=== PATIENT | male | born 1955 | race Caucasian/White ===

== ENCOUNTER 2018-01-23 18:26 | Emergency (ER) | payer BC ==
[2018-01-23] MEDS ORDERED: Lidocaine Viscous Sol 2% 15 ml UD Cup ONE (20:21)
[2018-01-23] MEDS ORDERED: Mag-Al 1200 mg/1200 mg/30 ML UDCUP ONE (20:21)
--- NOTE | 2018-01-23 20:21 | RAD ---
PORTABLE CHEST: 01/23/2018 PROVIDED CLINICAL HISTORY: Headache and cough. FINDINGS: The cardiac and mediastinal silhouette are within normal limits. No focal consolidation, pleural flu id, or pneumothorax apparent. IMPRESSION: No evidence for an acute cardiopulmonary process. POS: [facility]
--- NOTE | 2018-01-23 20:49 | CT ---
CT BRAIN: 01/23/2018 PROVIDED CLINICAL HISTORY: Dizziness. COMPARISON: None. FINDINGS: The ventricular system appears normal in size and morphology. There is no evidence for intracranial hemorrhage or mass effect. The extracranial soft tissues and osseous structures demonstrate no acute abnormality. IMPRESSION: No evidence for intracranial hemorrhage or mass effect. POS: [facility]
== END 2018-01-23 21:38 | disposition home or self-care (01) ==
LOC: ERS 18:26
DX: R05 Cough (principal); Z86.73 Personal history of transient ischemic attack (TIA), and cerebral infarction without residual deficits; Z87.442 Personal history of urinary calculi
CPT/HCPCS: 70450; 71045; J7620

== ENCOUNTER 2018-09-01 17:29 | Day surgery (SDC) | payer BC ==
[2018-09-01] MEDS ORDERED: Ketorolac Tromethamine 30 MG/ML VIAL ONE (17:44)
[2018-09-01 17:57] LABS: #Basophils 0.1 thou/uL (0.0-0.2); #Eosinphils 0.1 thou/uL (0.0-0.7); #Lymphocytes 3.7 thou/uL (1.20-3.40); #Monocytes 0.8 thou/uL (0.11-0.59); #Neutrophils 10.2 thou/uL (1.40-6.50); %Basophils 0.6 % (0.0-1.0); %Lymphocytes 24.9 % (21.0-51.0); %Monocytes 5.4 % (0.0-10.0); %Neutrophils 68.1 % (42.0-75.0); Hemoglobin 14.8 g/dL (14.0-18.0); Mean Corpuscular HGB CONC 33.9 g/dL (32.0-36.0); Mean Corpuscular Hemoglobin 30.7 pg (27.0-31.0); Mean Corpuscular Volume 90.6 fL (78.0-98.0); Mean Platelet Volume 8.5 fL (7.4-10.4); Platelet Count 247 thou/uL (130-400); RBC Distribution Width 14.7 % (11.5-14.5); Red Blood Cell (RBC) Count 4.83 mill/uL (4.70-6.10)
[2018-09-01 18:03] LABS: Bilirubin Negative (Negative); Blood, Urine Negative (Negative); Clarity TURBID (Clear); Glucose, Urine (Dipstick) Negative (Negative); Leukocyte Negative (Negative); Nitrite Negative (Negative); Protein, Urine (Dipstick) 30 mg/dL (Neg-Trace); Specific Gravity, Urine 1.021 (1.002-1.036); Urobilinogen 0.2 mg/dL (0.2-1.0); pH, Urine 8.5 (5.0-9.0)
[2018-09-01 18:06] LABS: Bacteria/HPF None Seen HPF (None Seen); Hyaline Casts/LPF 0-3 HYALINE CAST LPF (0-3 Hyaline); Pathc Cast-AUWi Flag 0.29 (0-2.49); WBC/HPF 0-3 HPF (0-3)
[2018-09-01 18:16] LABS: Crystals/HPF 3+ AMORPH PHOS HPF (Negative); RBC/HPF 0-3 HPF (0-3)
[2018-09-01] MEDS ORDERED: Fentanyl 100 MCG/2 ML VIAL ONE ×2 (18:25→18:51)
[2018-09-01] MEDS ORDERED: Bupivacaine/Epinephrine 0.25% 30 ML VIAL ONE (18:41)
[2018-09-01] MEDS ORDERED: MEROPENEM 1 GM/50 ML 1 GM in Premix Bag 1 BAG IVPB SCH (18:45)
[2018-09-01] MEDS ORDERED: Midazolam HCl 2 mg/2 ml Vial ONE (18:51)
--- NOTE | 2018-09-01 19:43 | HP ---
CHIEF COMPLAINT: Abdominal pain. HISTORY: Mr. Quick is a 63-year-old man, who presented to the emergency room with a history of right lower abdominal pain since this afternoon. He states that it happened shortly after going to the bathroom and was started on the lower abdominal area, then moved to the right, and radiated down into his groin and then back up into his abdomen. He denied any fevers, but was having some shaking chills. No nausea or vomiting. He did not notice whether movement made it worse since he was not really moving around after the pain started. PAST MEDICAL HISTORY: Obstructive sleep apnea, frontal lobe dementia with a mini-stroke causing some mild aphasia primarily expressive, multiple kidney stones, skin cancer, hypertension, and diverticulitis. PAST SURGICAL HISTORY: Skin cancer excisions and skin grafting as well as laparoscopic colectomy for diverticulitis. FAMILY HISTORY: Not fully known since he was adopted, but his mother had diabetes and lung cancer. ALLERGY: He has an allergy to penicillin. MEDICATIONS: Does not take any medications on a regular basis. SOCIAL HISTORY: Negative for tobacco, alcohol, or drug use. REVIEW OF SYSTEMS: 10 system review of systems is negative except per HPI. PHYSICAL EXAMINATION: GENERAL: Reveals a healthy-appearing man, in no acute distress. He is not flushed or toxic in appearance. He is not jaundiced or icteric. HEENT: Unremarkable. NECK: Supple without lymphadenopathy or thyroid nodules. HEART: Regular in its rate and rhythm without murmurs, rubs, or gallops. LUNGS: Clear to auscultation bilaterally with good air entry. ABDOMEN: Soft and nondistended. He has a small umbilical hernia and several laparoscopic incisions, which are well healed. He is tender to palpation in the right lower quadrant and suprapubic area. EXTREMITIES: Warm and well perfused without edema. NEUROLOGIC: No focal motor deficits. He does occasionally have some word-finding difficulties. This is subtle. PSYCHIATRIC: Alert, oriented, and appropriate. LABORATORY DATA: White count is elevated at 15,000. Urine was positive for protein and some squamous cells. Comprehensive metabolic panel is still pending. IMAGING STUDIES: CT images are reviewed and I agree with the written report. ASSESSMENT: Acute appendicitis. I have recommended laparoscopic appendectomy. The inherent risks of surgery were discussed with the patient and his . These risks include, but are not limited to bleeding, infection, risks of anesthesia, damage to nearby structures including bowel, blood vessel, bladder, need for open operation, and need for other surgeries. He understands and accepts these risks and wishes to proceed. Since we will be placing a port at the umbilical location, we will plan to fix a small umbilical hernia with suture alone at the end of the case. All of his questions were answered. Teo has been ordered. He has been proceeded for the operating room. Job ID: [id number]
[2018-09-01 19:47] LABS: Albumin 3.7 g/dL (3.4-4.8)
[2018-09-01 19:49] LABS: Calcium 8.8 mg/dL (7.8-10.44); Chloride 108 mmol/L (98-107); Potassium 3.9 mmol/L (3.5-5.1); Sodium 140 mmol/L (136-145)
[2018-09-01 19:50] LABS: Globulin 2.5 g/dL (2.4-3.5); Glucose 113 mg/dL (80-115); Protein, Total 6.2 g/dL (5.8-8.1)
[2018-09-01 19:51] LABS: Anion Gap 11 mmol/L (10-20); Carbon Dioxide 25 mmol/L (23-31)
[2018-09-01 19:52] LABS: Alkaline Phosphatase 48 U/L (40-150); Bilirubin, Total 0.4 mg/dL (0.2-1.2)
[2018-09-01 19:53] LABS: Calc. Creatinine Clearance 0 mL/min (70-130); Estimated GFR-MDRD 55
[2018-09-01 19:54] LABS: BUN (Urea Nitrogen) 17 mg/dL (8.4-25.7)
[2018-09-01 19:55] LABS: AST (SGOT) 19 U/L (5-34)
[2018-09-01 19:56] LABS: ALT (SGPT) 18 U/L (8-55)
[2018-09-01] MEDS ORDERED: Ketorolac Tromethamine 10 MG TAB PO PRN (20:53)
[2018-09-01] MEDS ORDERED: Acetaminophen 325 MG TAB PO PRN ×2 (20:54)
[2018-09-01] MEDS ORDERED: HYDROcodone/Acetaminophen 5/325 mg Tablet PO PRN ×2 (20:55→20:56)
[2018-09-01] MEDS ORDERED: Dexamethasone 20 MG/5 ML VIAL ONE (20:56)
[2018-09-01] MEDS ORDERED: Glycopyrrolate 0.2 MG/ML 5 ML SYRINGE ONE (20:56)
[2018-09-01] MEDS ORDERED: Ondansetron PF 4 MG/2 ML Vial IVP PRN (20:56)
[2018-09-01] MEDS ORDERED: PROPOFOL 200 MG/20 ML VIAL ONE (20:56)
[2018-09-01] MEDS ORDERED: Lidocaine 1% PF 5 ML VIAL ONE (20:56)
[2018-09-01] MEDS ORDERED: Ondansetron PF 4 MG/2 ML Vial ONE (20:56)
[2018-09-01] MEDS ORDERED: Ondansetron ODT 4 MG TAB SL PRN (20:57)
[2018-09-01] MEDS ORDERED: Morphine 4 MG/ML VIAL IV PRN (20:59)
--- NOTE | 2018-09-01 21:56 | CT ---
CT ABDOMEN WITHOUT CONTRAST CT PELVIS WITHOUT CONTRAST 09/01/18 HISTORY: One hour ago, right sharp groin and right lower quadrant pain. Past medical history of renal calculi. FINDINGS: ABDOMEN CT: Lung bases are clear. Normal heart size. No significant pericardial fluid. The descending thoracic ao rta and abdominal aorta have a normal caliber. No periaortic fat stranding. Unremarkable gallbladder. Limited evaluation of the solid organs due to the lack of IV contrast. Multiple well circumscribed hy podensities in the liver compatible with cysts. Largest cyst measures 3.6 x 3.7 cm. No mesenteric mass, lymphadenopathy, free air or free fluid. Limited evaluation of the alimentary canal due to lack of oral contrast administration. Gastric mucos a, duodenum and multiple normal caliber small bowel loops are identified. Ileocecal junction is joan l. There is scattered fecal material in a nondistended, nondilated colon. There is a dilated tubular structure which has multiple hyperdensities within it compatible with multifocal appendicoliths. The mid to distal aspect does demonstrate some mild stranding and fluid. This tubular structure is dilate d and measures 0.8 cm at its base. There is an appendicolith measuring approximately 0.6 cm. Small ap pendicoliths are also noted. There is an exophytic cyst emanating from the left renal cortex measuring 3.4 x 4.5 cm. Bilaterally, no hydronephrosis, nephrolithiasis, or perinephric fat stranding. Bilateral ureters have normal calib er. No hydroureter, periureteral fat stranding or ureterolithiasis. Note, there are multiple calcific ations adjacent to the course of the distal left ureter. Nevertheless, no associated obstructive urop athy. CT PELVIS: There is anastomosis at the level of the rectosigmoid junction. No pelvic mass, lymphadenopathy, karen e air or free fluid. No calcifications in urinary bladder. No lytic or blastic lesions in the osseous structures. IMPRESSION: 1. Bilaterally, no evidence of obstructive uropathy. 2. Multiple hyperdensities within the appendix, compatible with appendicolith. The proximal aspe ct of the appendix is dilated measuring 0.8 cm. The distal aspect does demonstrate a small amount o f adjacent mesenteric fluid. The possibility of early appendicitis is raised. Results of the study di scussed with Dr. Cruz, 12/29/18 at 6:23 p.m. Code CR POS: [facility]
[2018-09-01 22:36] VITALS: BMI 28.8
[2018-09-02 08:17] VITALS: BP 102/65; TEMP 98.5
--- NOTE | 2018-09-03 12:08 | OP ---
DATE OF PROCEDURE: 09/01/2018 PROCEDURE: Laparoscopic appendectomy and repair of umbilical hernia on 09/01/2018. PREOPERATIVE DIAGNOSES: Acute appendicitis and small umbilical hernia. POSTOPERATIVE DIAGNOSES: Acute appendicitis and small umbilical hernia. HISTORY OF PRESENT ILLNESS: Mr. Quick is a 63-year-old man who presented to the emergency room with acute onset of right-sided abdominal pain. He has a history of kidney stones and thought he might be having an another kidney stone, but CT revealed acute appendicitis. Recommendation was made to proceed to the operating room for laparoscopic appendectomy. He was also incidentally noted to have a small reducible umbilical hernia and repair of this under the same anesthesia was recommended due to the small size of the hernia and need for appendectomy, suture repair only was recommended. DESCRIPTION OF PROCEDURE: After informed consent was obtained and appropriate preoperative antibiotics continued, the patient was taken to the operating room. He was placed in supine position and general endotracheal anesthesia was administered. The bladder was decompressed with John catheter and he was prepped and draped in standard sterile fashion. Local anesthesia was infused to the skin and subcutaneous tissues at the level of the umbilicus. A transverse skin incision was made. Dissection was carried down to the umbilical hernia, which was found to contain preperitoneal fat only. The Veress needle was placed through the small less than 1 cm fascial defect and carbon dioxide gas easily insufflated to an intraabdominal pressure of 15 which the patient tolerated well. The opening pressure was less than 5. The Veress needle was then withdrawn and a ClearView port advanced through the umbilical defect under direct vision. The abdominal cavity was carefully examined. There was no evidence of Veress needle or trocar injury. The appendix appeared inflamed, but not perforated. Local anesthesia was infused to the skin and subcutaneous tissues at the suprapubic and left lower quadrant sites, and the trocars were advanced under direct laparoscopic vision. The mesoappendix was grasped and elevated and sequentially ligated and divided down to the base of the appendix, which was normal in appearance. Two endo-loops were placed around the base of the appendix at the confluence of the tenia and the appendix was divided between endo-loops placed into an EndoCatch bag, and drawn out through the suprapubic incision. The operative site was easily irrigated clear and hemostasis was verified. There was no evidence of perforation or periappendiceal abscess. The suprapubic trocar was removed and the fascial defect closed with a 0 Vicryl suture on a granny needle with excellent technical result. The left lower quadrant trocar was then removed and hemostasis verified. Carbon dioxide gas was allowed to desufflate through the umbilical trocar which was then removed. The fascia was reapproximated with 0 Vicryl suture on a UR6 needle under direct vision with excellent technical result. Additional, local anesthesia was infused for postoperative pain control and the skin incisions were closed with 4-0 Monocryl subcuticular sutures. Dermabond dressings were placed and the patient was taken to Recovery in good condition. ESTIMATED BLOOD LOSS: Minimal. COMPLICATIONS: There were no complications. SPECIMEN: Appendix. Job ID: [id number]
== END 2018-09-02 11:05 | disposition home or self-care (01) ==
LOC: ERS 17:29 → SDC/OP 18:44 → SJJU 20:36 → SDC/OP 09-02 11:05
PROVIDERS: ATTEND Surgery
PROC: 0WQF0ZZ Repair Abdominal Wall, Open Approach (ICD-10-PCS; principal; 2018-09-01)
PROC: 0DTJ4ZZ Resection of Appendix, Percutaneous Endoscopic Approach (ICD-10-PCS; principal; 2018-09-01)
DX: K35.80 Unspecified acute appendicitis (principal); K42.9 Umbilical hernia without obstruction or gangrene; G47.33 Obstructive sleep apnea (adult) (pediatric); I69.320 Aphasia following cerebral infarction; G31.09 Other frontotemporal neurocognitive disorder; F02.80 Dementia in other diseases classified elsewhere, unspecified severity, without behavioral disturbance, psychotic disturbance, mood disturbance, and anxiety; I10 Essential (primary) hypertension; Z88.0 Allergy status to penicillin; Z79.82 Long term (current) use of aspirin; Z79.899 Other long term (current) drug therapy
CPT/HCPCS: 36415; 74176; 80053; 81003; 81015; 85025; 87086; 88304; 96361; 96374; 96375; J1100; J1885; J2001; J2185; J2250; J2405; J2704; J3010

== ENCOUNTER 2018-09-09 10:12 | Emergency (ER) | payer BC ==
[2018-09-09 10:33] LABS: #Basophils 0.2 thou/uL (0.0-0.2); #Eosinphils 0.2 thou/uL (0.0-0.7); #Lymphocytes 2.5 thou/uL (1.20-3.40); #Monocytes 0.5 thou/uL (0.11-0.59); #Neutrophils 3.7 thou/uL (1.40-6.50); %Basophils 2.2 % (0.0-1.0); %Eosinophils 3.3 % (0.0-10.0); %Lymphocytes 35.1 % (21.0-51.0); %Monocytes 7.5 % (0.0-10.0); %Neutrophils 51.9 % (42.0-75.0); Hemoglobin 14.4 g/dL (14.0-18.0); Mean Corpuscular HGB CONC 33.9 g/dL (32.0-36.0); Mean Corpuscular Hemoglobin 31.2 pg (27.0-31.0); Platelet Count 222 thou/uL (130-400); RBC Distribution Width 11.8 % (11.5-14.5); Red Blood Cell (RBC) Count 4.63 mill/uL (4.70-6.10); White Blood Cell (WBC) Count 7.1 thou/uL (4.8-10.8)
[2018-09-09 10:39] LABS: PTT 27.8 SEC (22.9-36.1); Prothrombin Time 13.2 SEC (12.0-14.7)
[2018-09-09 10:55] LABS: ALT (SGPT) 23 U/L (8-55); AST (SGOT) 18 U/L (5-34); Albumin 4.2 g/dL (3.4-4.8); Alkaline Phosphatase 68 U/L (40-150); Anion Gap 11 mmol/L (10-20); BUN (Urea Nitrogen) 17 mg/dL (8.4-25.7); Bilirubin, Total 0.5 mg/dL (0.2-1.2); CK (CPK) 94 U/L (30-200); Calc. Creatinine Clearance 0 mL/min (70-130); Calcium 9.7 mg/dL (7.8-10.44); Carbon Dioxide 29 mmol/L (23-31); Chloride 103 mmol/L (98-107); Estimated GFR-MDRD 65; Globulin 3.4 g/dL (2.4-3.5); Glucose 97 mg/dL (80-115); Potassium 4.3 mmol/L (3.5-5.1); Protein, Total 7.6 g/dL (5.8-8.1); Sodium 139 mmol/L (136-145)
--- NOTE | 2018-09-09 11:54 | ULT ---
RIGHT LOWER EXTREMITY VENOUS DOPPLER: Date: 09/09/18 HISTORY: Right lower extremity pain, edema, and redness. COMPARISON: None. TECHNIQUE: Real-time Culver scale and color Doppler with spectral analysis of the right lower extremity venous sy stem was performed. The common femoral, femoral, proximal portions of greater saphenous and deep femo ral veins, as well as the popliteal and posterior tibial veins were interrogated. FINDINGS: There is thrombosis of the posterior tibial vein. Remainder of the veins have normal flow, augmentati on and compression. IMPRESSION: Thrombosis right posterior tibial vein. Dr. Marvin notified of findings at 1111 hours. CODE CR. POS: [facility]
== END 2018-09-09 11:45 | disposition home or self-care (01) ==
LOC: ERS 10:12
DX: I82.441 Acute embolism and thrombosis of right tibial vein (principal); D64.9 Anemia, unspecified; Z79.899 Other long term (current) drug therapy; Z86.73 Personal history of transient ischemic attack (TIA), and cerebral infarction without residual deficits
CPT/HCPCS: 36415; 80053; 82550; 85025; 85610; 85730; 93005; 94760

== ENCOUNTER 2018-09-28 05:27 | Observation (INO) | payer BC ==
[2018-09-28 06:30] LABS: #Basophils 0.1 thou/uL (0.0-0.2); #Eosinphils 0.2 thou/uL (0.0-0.7); #Lymphocytes 2.1 thou/uL (1.20-3.40); #Monocytes 0.3 thou/uL (0.11-0.59); #Neutrophils 2.1 thou/uL (1.40-6.50); %Basophils 1.2 % (0.0-1.0); %Lymphocytes 43.8 % (21.0-51.0); %Monocytes 6.5 % (0.0-10.0); %Neutrophils 44.4 % (42.0-75.0); Hemoglobin 13.6 g/dL (14.0-18.0); Mean Corpuscular HGB CONC 33.2 g/dL (32.0-36.0); Mean Corpuscular Hemoglobin 30.9 pg (27.0-31.0); Mean Corpuscular Volume 93.1 fL (78.0-98.0); Mean Platelet Volume 8.4 fL (7.4-10.4); Platelet Count 209 thou/uL (130-400); RBC Distribution Width 11.7 % (11.5-14.5); Red Blood Cell (RBC) Count 4.41 mill/uL (4.70-6.10); White Blood Cell (WBC) Count 4.7 thou/uL (4.8-10.8)
[2018-09-28 06:35] LABS: INR-International Normal Ratio 1.1; PTT 31.5 SEC (22.9-36.1); Prothrombin Time 14.5 SEC (12.0-14.7)
[2018-09-28 06:54] LABS: ALT (SGPT) 24 U/L (8-55); AST (SGOT) 22 U/L (5-34); Acetaminophen Less than 6.0 mcg/mL (10.0-30.0); Alcohol Less than 10 mg/dL (Less than 10); Alkaline Phosphatase 59 U/L (40-150); Anion Gap 14 mmol/L (10-20); BUN (Urea Nitrogen) 13 mg/dL (8.4-25.7); Bilirubin, Total 0.5 mg/dL (0.2-1.2); Calc. Creatinine Clearance 0 mL/min (70-130); Calcium 9.5 mg/dL (7.8-10.44); Carbon Dioxide 23 mmol/L (23-31); Chloride 107 mmol/L (98-107); Estimated GFR-MDRD 69; Glucose 107 mg/dL (80-115); Salicylate Less than 8.0 mg/dL (15.0-30.0); Sodium 140 mmol/L (136-145)
[2018-09-28 07:02] LABS: CK (CPK) 127 U/L (30-200); Lipase 21 U/L (8-78)
--- NOTE | 2018-09-28 08:38 | CT ---
PRELIMINARY REPORT/[facility]/EMERGENTY AFTER-HOURS PROCEDURE CT Head Without Contrast EXAM DATE/TIME: 09/28/2018 5:52 AM CLINICAL HISTORY: 63 years old, male; Signs and symptoms; Altered mental status/memory loss; Confusion or disorientatio n; Patient HX: AMS; PT is confused; A&ox2; TECHNIQUE: Axial computed tomography images of the head/brain without contrast. COMPARISON: CT Brain WO Con 01/23/2018 8:09 PM FINDINGS: Brain: No acute intracranial hemorrhage or mass effect. No definite acute infarct by CT. MRI could be more sensitive/specific for detection, as clinically directed. Ventricles: Ventricle size is normal for age. Bones/joints: No definite acute skull fracture. Sinuses: Included paranasal sinuses are essentially clear. Mastoid air cells: No significant acute finding. IMPRESSION: 1. No acute intracranial bleed or mass effect. 2. No definite acute infarct by CT, see above. Thank you for allowing us to participate in the care of your patient. Dictated and Authenticated by: Riley De Leon MD 09/28/2018 6:21 AM Central Time ([place] & [place]) FINAL REPORT EMERGENT AFTER HOURS CT OF THE BRAIN PERFORMED WITHOUT CONTRAST ENHANCEMENT: History: Altered mental status, confusion. Comparison: 01-23-18 FINDINGS: Generalized ventricular and sulcal prominence for age. There are no signs of intracerebral hemorrhage or extraaxial fluid collection. Mastoid air cells and visualized sinuses are clear. IMPRESSION: 1. No acute intracranial abnormalities. 2. This report is in agreement with the temporary report issued by [facility]. POS: [facility]
--- NOTE | 2018-09-28 09:11 | RAD ---
CHEST ONE VIEW: History: Altered mental status. Confusion. Comparison: 01-23-18 FINDINGS: Heart size is within normal limits. The lungs are clear. No pneumonia, edema, or pleural effusion. St able post-operative changes at the AC joint. IMPRESSION: No significant acute intrathoracic disease. No pneumonia, edema, or other acute process. 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 Stable from prior study. POS: [facility]
[2018-09-28 10:08] LABS: Bilirubin Negative (Negative); Blood, Urine Negative (Negative); Clarity CLEAR (Clear); Glucose, Urine (Dipstick) Negative (Negative); Leukocyte Negative (Negative); Nitrite Negative (Negative); Protein, Urine (Dipstick) Negative (Neg-Trace); Specific Gravity, Urine 1.016 (1.002-1.036); Urobilinogen 0.2 mg/dL (0.2-1.0); pH, Urine 8.5 (5.0-9.0)
[2018-09-28 10:18] LABS: Amphetamine Not Detected (NotDetected); Barbiturates Screen Not Detected (NotDetected); Benzodiazepine Screen Not Detected (NotDetected); Cocaine Metabolite Screen Not Detected (NotDetected); Medtox Control Line Valid? VALID (VALID); Medtox Reader # READER 1; Methadone Not Detected (NotDetected); Methamphetamine Not Detected (NotDetected); Opiate Screen Not Detected (NotDetected); Oxycodone Screen Not Detected (NotDetected); Phencyclidine (PCP) Not Detected (NotDetected); THC/Cannabinoid Screen Not Detected (NotDetected); Tricyclic Screen Not Detected (NotDetected)
--- NOTE | 2018-09-28 15:18 | HP ---
CHIEF COMPLAINT: Acute mental status change. HISTORY OF PRESENT ILLNESS: The patient is a 63-year-old male, who was a getting to work this morning. He is a dump truck driver. Around 4:00 a.m., he came home to work and apparently, he had some trouble to find some knobs on his radio in his truck and this was noticed by his coworkers and EMS was called and he was taking to the emergency room for further evaluation. He improved a lot from the time of admission to the emergency room and that the time when I am seeing him, his is present in the room. She is the surrogate decision maker, her name is Avril Noel. The patient's PCP is SUDHIR Ravi. He does not remember some parts of this morning what happened at work and his memory came back when he got to the emergency room. Apparently, he has diagnosis of frontal lobe dementia. PAST MEDICAL HISTORY: 1. CVA in November 2016. 2. Hypertension. 3. Anemia. 4. Diverticulitis. 5. Nephrolithiasis. 6. Multiple skin cancers. PAST SURGICAL HISTORY: 1. Appendectomy. 2. Hernia repair. 3. Diverticulitis surgery and 12 inch of colon removed. PSYCHIATRIC HISTORY: Positive for frontal lobe dementia. SOCIAL HISTORY: He denies any alcohol use. He used to smoke and quit long time ago. He does not use any illicit drugs. FAMILY HISTORY: He is adopted. CURRENT MEDICATIONS: 1. Escitalopram 10 mg once a day. 2. Eliquis 5 mg twice a day. ALLERGIES: PENICILLIN. REVIEW OF SYSTEMS: CONSTITUTIONAL: Negative for fever and chills. EYES: Negative for eye pain and eye discharge. ENT: Negative for epistaxis and nasal congestion. CARDIOVASCULAR: Negative for chest pain and syncope. RESPIRATORY: Negative for shortness of breath and cyanosis. GI: Positive for hematemesis. Negative for diarrhea, constipation. MUSCULOSKELETAL: Negative for joint redness and myalgias. NEUROLOGIC: Positive for myoclonus. HEMOLYMPHATIC: Negative for abnormal clotting. No lymphadenopathy. PSYCHIATRIC: Negative for homicidal or suicidal ideations. Positive for recurrent memory problem. PHYSICAL EXAMINATION: VITAL SIGNS: Blood pressure is 110/96, pulse is 99, respiratory rate is 18, and his pulse oximetry is 99% on room air. HEENT: His head is atraumatic and normocephalic. Eyes; PERRLA. Sclerae are nonicteric. NECK: Supple. LUNGS: Clear. HEART: S1 and S2, normal. No S3. No S4. ABDOMEN: Soft and nontender. No guarding. No masses. EXTREMITIES: No clubbing, cyanosis, or edema. NEUROLOGICAL: He follows my commands. He moves his all 4 extremities. There is no any sensory deficit. He does not have any nystagmus. His visual parrish are within normal limits. Extraocular movements within normal limits. LABORATORY DATA: Labs showed white count of 4.7, hemoglobin is 13.6, hematocrit 41.1, and platelet count is 209,000. INR 1.1, PT of 14.5. Chemistry within normal limits. Prolactin 19.3. TSH 2.62. Lipase 21. Ammonia 24. Salicylates less than 8. Acetaminophen less than 6. Plasma alcohol less than 10. IMAGING DATA: EKG showed normal sinus rhythm with ventricular rate of 73 and left bundle-branch block. Chest x-ray did not show any acute abnormalities. This was personally reviewed by me and brain CT was personally reviewed by me and it did not show any acute abnormalities either. IMPRESSION: 1. Acute confusional state most likely related to his frontal lobe dementia, this is recurrent. 2. History of cerebrovascular accident per the patient. 3. Normocytic anemia. 4. History of nephrolithiasis. 5. History of diverticulitis. 6. Hypertension. 7. Multiple skin cancers. PLAN: Admission to Stroke Unit. Condition is fair. Observation status. IV Hep-Lock. H and H. Followup guaiac stool testing. Hold Eliquis. Obtain consultation with Dr. Maddox for Neurology evaluation of his episode. MRI of the brain. Continue escitalopram 10 mg once a day. SCDs for DVT prophylaxis. Job ID: [id number] [facility]
[2018-09-28] MEDS ORDERED: Lorazepam 1 MG TAB ONE (15:42)
[2018-09-28 17:43] VITALS: BMI 29.5
[2018-09-28] MEDS ORDERED: Pantoprazole 40 MG VIAL IVP SCH (21:00)
[2018-09-29 05:05] LABS: #Basophils 0.1 thou/uL (0.0-0.2); #Eosinphils 0.2 thou/uL (0.0-0.7); #Lymphocytes 2.2 thou/uL (1.20-3.40); #Monocytes 0.4 thou/uL (0.11-0.59); #Neutrophils 2.5 thou/uL (1.40-6.50); %Basophils 1.3 % (0.0-1.0); %Eosinophils 4.3 % (0.0-10.0); %Lymphocytes 41.2 % (21.0-51.0); %Monocytes 7.9 % (0.0-10.0); %Neutrophils 45.3 % (42.0-75.0); Hemoglobin 13.3 g/dL (14.0-18.0); Mean Corpuscular Hemoglobin 31.1 pg (27.0-31.0); Mean Corpuscular Volume 94.2 fL (78.0-98.0); Mean Platelet Volume 8.2 fL (7.4-10.4); Platelet Count 194 thou/uL (130-400); RBC Distribution Width 11.7 % (11.5-14.5); Red Blood Cell (RBC) Count 4.28 mill/uL (4.70-6.10); White Blood Cell (WBC) Count 5.4 thou/uL (4.8-10.8)
[2018-09-29 05:28] LABS: Anion Gap 13 mmol/L (10-20); BUN (Urea Nitrogen) 13 mg/dL (8.4-25.7); Calc. Creatinine Clearance 98 mL/min (70-130); Carbon Dioxide 23 mmol/L (23-31); Chloride 105 mmol/L (98-107); Estimated GFR-MDRD 69; Glucose 96 mg/dL (80-115); Potassium 4.2 mmol/L (3.5-5.1); Sodium 137 mmol/L (136-145)
[2018-09-29] MEDS: Escitalopram Oxalate 10 mg Tablet PO SCH (08:50)
[2018-09-29] MEDS: Ferrous Sulfate 325 MG TAB PO SCH (08:50)
[2018-09-29] MEDS: Multivit, Therapeutic 1 TAB PO SCH (08:51)
[2018-09-29] MEDS: Magnesium Oxide 250 MG TAB PO SCH (08:51)
[2018-09-29] MEDS: Loratadine 10 MG TAB PO SCH (08:51)
[2018-09-29] MEDS ORDERED: PATIENT'S HOME MEDICATION PO SCH (09:00)
[2018-09-29 09:24] LABS: Iron 117 ug/dL (65-175); Iron Binding Capacity, Total 276 mcg/dL (261-462)
[2018-09-29] MEDS: Apixaban 5 MG TAB PO SCH ×2 (10:20→16:56)
--- NOTE | 2018-09-29 10:30 | PDOC.PN ---
- Subjective Encounter Start Date: 09/29/18 Encounter Start Time: 10:00 Subjective: Patient examined, has left sided facial droop, reports it has -: been there for the last 2 years and gets worse from time to time. -: Reports "twitches" of all extremities over the last several months - Objective Resuscitation Status - Order Detail: 09/28/18 08:39 Resuscitation Status Routine Resuscitation Status: FULL: Full Resuscitation Vital Signs & Weight: Vital Signs (12 hours) Temp Pulse Resp BP Pulse Ox 09/29/18 07:41 98.5 F 62 20 99/65 97 09/29/18 04:00 97.5 F L 56 L 18 101/61 97 09/29/18 00:00 97.5 F L 52 L 18 104/63 97 Weight Weight 98.968 kg I&O: 09/28/18 09/29/18 09/30/18 06:59 06:59 06:59 Intake Total 510 Balance 510 Result Diagrams: 09/29/18 04:25 09/29/18 04:25 Radiology Reviewed by me: Yes EKG Reviewed by me: Yes Phys Exam - Physical Examination HEENT: PERRLA, moist MMs Neck: no nodes, no JVD Respiratory: no wheezing, clear to auscultation bilateral Cardiovascular: RRR, no significant murmur Gastrointestinal: soft, non-tender Musculoskeletal: no edema, pulses present Neurological: normal sensation, moves all 4 limbs left sided facial droop, chronic, Psychiatric: normal affect, A&O x 3 Skin: no rash, normal turgor, cap refill <2 seconds Dx/Plan (1) Dementia Code(s): F03.90 - UNSPECIFIED DEMENTIA WITHOUT BEHAVIORAL DISTURBANCE Status: Chronic (2) Altered mental status Code(s): R41.82 - ALTERED MENTAL STATUS, UNSPECIFIED Status: Acute (3) Hematemesis Code(s): K92.0 - HEMATEMESIS Status: Acute (4) Anticoagulant long-term use Code(s): Z79.01 - ASSISTED (CURRENT) USE OF ANTICOAGULANTS Status: Chronic (5) Sleep apnea in adult Code(s): G47.30 - SLEEP APNEA, UNSPECIFIED Status: Chronic - Plan cont current plan of care Awaiting neuro and GI consult -: Could not tolerate MRI due to claustrophobia, will medicate and try again -: Will trend H&Hs, hold eliquis * . Review of Systems - Review of Systems Neurological: Confusion Other: Does not remember most of the events from yesterday prior to arrival at ED. - Medications/Allergies Allergies/Adverse Reactions: Allergies Allergy/AdvReac Type Severity Reaction Status Date / Time Penicillins Allergy Verified 09/01/18 21:50 Medications: Current Medications Apixaban (Eliquis) 5 mg PO BID [facility] Last Admin: 09/29/18 10:20 Dose: Not Given Diphenhydramine HCl (Benadryl) 25 mg PO [facility]CALL [facility] Stop: 09/29/18 20:00 Last Admin: 09/29/18 11:17 Dose: 25 mg Escitalopram Oxalate (Lexapro) 10 mg PO DAILY [facility] Last Admin: 09/29/18 08:50 Dose: 10 mg Ferrous Sulfate (Feosol) 325 mg PO DAILY [facility] Last Admin: 09/29/18 08:50 Dose: 325 mg Loratadine (Claritin) 10 mg PO DAILY [facility] Last Admin: 09/29/18 08:51 Dose: 10 mg Lorazepam (Ativan) 2 mg PO [facility]CALL [facility] Stop: 09/29/18 20:00 Last Admin: 09/29/18 11:17 Dose: 2 mg Magnesium Oxide (Magnesium Oxide) 250 mg PO DAILY [facility] Last Admin: 09/29/18 08:51 Dose: 250 mg Multivitamins (Theragran) 1 tab PO DAILY [facility] Last Admin: 09/29/18 08:51 Dose: 1 tab Patient Own Medication (Patient's Home Medication) 1 each PO BID [facility]
[2018-09-29] MEDS ORDERED: Lorazepam 1 MG TAB PO SCH (10:45)
[2018-09-29] MEDS ORDERED: diphenhydrAMINE 25 MG CAP PO SCH (10:45)
--- NOTE | 2018-09-29 11:13 | CON ---
DATE OF CONSULTATION: 09/29/2018 TYPE OF CONSULTATION: Neurology. CONSULTING PHYSICIAN: Hospitalist Services. IMPRESSION: 1. Probable transient global amnesia. 2. Recent deep venous thrombosis. 3. Sleep apnea. PLAN: MRI of the brain. HISTORY OF PRESENT ILLNESS: Mr. Quick is a 63-year-old man, whom I have seen in the past for some degree of memory difficulty and word-finding problems. Earlier last year, he had an MRI of the brain and MRA, which were all unremarkable. Neuropsychiatric testing revealed some frontal lobe dysfunction. He continues to work and function independently. When he got up at 4:30 and went to work. 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 After arriving at work, he apparently was driving around in circles for no apparent reason. He was noted to be acting strangely and he has no memory of any of these events. The next thing he remembers was waking up in the emergency room. His got a phone call from him in the midst of this, which he seemed to be confused. He was not reporting any other complaints at that point. His episode probably lasted 6 hours. He remembers having a headache yesterday. They attempted an MRI of the brain, but he was too claustrophobic. He otherwise has been feeling well. His laboratory studies including a drug screen were all unremarkable. His vital signs have been stable since admission. He has been afebrile. PAST MEDICAL HISTORY: As listed above. SOCIAL HISTORY: No tobacco or alcohol use. FAMILY HISTORY: Noncontributory. MEDICATIONS: Medication list was reviewed. . REVIEW OF SYSTEMS: Ten-system review of systems is otherwise negative. PHYSICAL EXAMINATION: GENERAL: He is a well-nourished, middle-aged man, in no acute distress. VITAL SIGNS: Blood pressure 99/65, pulse 62, respirations 20, and temperature 98.5. HEENT: Pupils are equal and reactive. Conjunctivae clear. Oropharynx clear. NECK: Supple. EXTREMITIES: No cyanosis, clubbing, or edema. NEUROLOGIC: He is alert and appropriate. His speech is fluent and clear. His exam is nonfocal. IMAGING: CT scan of the brain without contrast was normal. SUMMARY: A 63-year-old gentleman with a 6-hour episode of amnesia, many of the events that took place yesterday. Overall, I suspect this will be transient global amnesia. His MRI is pending to confirm this. Job ID: [id number]
--- NOTE | 2018-09-29 12:19 | CON ---
DATE OF CONSULTATION: 09/29/2018 This is a GI inpatient consultation note. REASON FOR CONSULTATION: Hematemesis. HISTORY OF PRESENT ILLNESS: Keven Quick is a 63-year-old man, who was admitted to the hospital yesterday morning with altered mental status. He really has no recollection of the events that went on yesterday. He takes Eliquis with a history of CVA. At any rate, at some point, during the admission process, he was noted to have hematemesis. The patient himself does not remember this. It is unclear exactly, who witnessed this, but that prompted the consultation for today. His hemoglobin on admission was 13.6 and today is stable at 13.3. Note that, his BUN is not elevated, only at 13. In asking the patient, if this is a common thing that has happened before. He says no. He says that he does have a chronic cough and will often cough quite severely. He wonders if he might have coughed up blood rather than throwing it out, but he is not sure. He does not have any chronic abdominal pain, nausea, or vomiting or any current nausea or vomiting. He does say that he has chronic dysphagia and that this is actually been fairly severe, particularly over the past several months. Years ago, he had multiple EGDs with dilations of the esophageal stricture, but has not had an EGD for the past 10 years or so. This was all done elsewhere. He does say that he has to eat very slowly in order to get the food down. REVIEW OF SYSTEMS: Full review of systems including constitutional, head, eyes, ears, nose, throat, GI, , cardiovascular, respiratory, musculoskeletal, and neurologic systems are negative except as noted in the HPI. PAST MEDICAL HISTORY: CVA in November 2016, hypertension, anemia, diverticulitis with partial colon resection, nephrolithiasis, multiple skin cancers, appendectomy in August 2018, hernia repair, and frontal lobe dementia. SOCIAL HISTORY: No alcohol use. Former smoker. No drug use. FAMILY HISTORY: The patient is adopted. OUTPATIENT MEDICATIONS: 1. Eliquis 5 mg twice daily. 2. Escitalopram 10 mg daily. ALLERGIES: PENICILLIN. PHYSICAL EXAMINATION: VITAL SIGNS: Temperature 98.2, pulse 60, blood pressure 128/70, and 94% oxygen saturation on room air. GENERAL: A 63-year-old man, sitting up in bed comfortably, in no distress. SKIN: No jaundice. No rashes were palpable. EYES: No scleral icterus. Extraocular movements intact. ENT: Mucous membranes moist. No oral lesions. LYMPH: No submandibular or supraclavicular lymphadenopathy. THYROID: Nontender to palpation. HEART: Regular rate and rhythm. LUNGS: Clear to auscultation bilaterally. ABDOMEN: Bowel sounds present. Soft and nontender to deep palpation throughout. EXTREMITIES: No peripheral edema. VESSELS: Radial pulses 2+ bilaterally. NEUROLOGIC: Cranial nerves 2 through 12 intact bilaterally. No focal deficits. LABORATORY STUDIES: Sodium 137, potassium 4.2, BUN 13, and creatinine 1.09. Iron studies all normal with ferritin 205, iron 117, and TIBC 276. TSH is 2.62 and vitamin B12 is 349. LFTs all normal with total bilirubin 0.5, alkaline phosphatase 59, AST 22, and ALT 24. Troponin negative. Albumin 4.0. Lipase only 21. Ammonia only 24. BNP only 19.7. Hemoglobin 13.3, WBC 5.4, and platelets 194. INR is 1.1. Tox screen is negative. ASSESSMENT AND PLAN: 1. Possible hematemesis upon presentation yesterday. This has not recurred. Note, the hemoglobin is normal and stable. It is unclear whether this even represented real hematemesis or possibly hemoptysis. 2. Dysphagia, chronic. This is actually more of a concern for the patient. He says that he has had esophageal strictures dilated in the past and the dysphagia has been fairly severe over the past few months. He is not on any acid suppressing medicine with a combination of chronic dysphagia, now possible hematemesis, even though I see no evidence of ongoing overt bleeding, this does warrant endoscopic investigation at some point. I think it would be reasonable to perform esophagogastroduodenoscopy while he is admitted. We will plan tentatively for esophagogastroduodenoscopy tomorrow morning, assuming he is cleared from a neurological standpoint. His Eliquis has been held today and I would continue to hold this until after the esophagogastroduodenoscopy. Further recommendations following esophagogastroduodenoscopy tomorrow. Thank you for the consultation. Please call back anytime with questions or concerns. Job ID: [id number]
--- NOTE | 2018-09-29 15:19 | MRI ---
MRI BRAIN WITH AND WITHOUT CONTRAST: HISTORY: A 63-year-old male with acute confusional state and dysarthria. TECHNIQUE: Multiple sequences obtained in axial, sagittal, and coronal planes; pre and post IV injection of gado linium-based contrast agent: 16 mL of MultiHance. FINDINGS: The ventricles are normal in size and configuration. There is no restricted diffusion, abnormal intr aaxial enhancement, mass, midline shift or any other mass effect, recent intraaxial hemorrhage, or ex traaxial fluid collection. There are a few scattered punctate T2-hyperintensities in the cerebral whi te matter consistent with minimal chronic ischemic white matter changes due to mild microvascular ath erosclerosis. IMPRESSION: 1. Minimal chronic ischemic white matter changes. 2. Otherwise negative. jn[] POS: ARIANE
[2018-09-30 06:28] LABS: #Eosinphils 0.3 thou/uL (0.0-0.7); #Monocytes 0.4 thou/uL (0.11-0.59); #Neutrophils 3.4 thou/uL (1.40-6.50); %Basophils 0.4 % (0.0-1.0); %Eosinophils 4.2 % (0.0-10.0); %Lymphocytes 33.3 % (21.0-51.0); %Neutrophils 55.1 % (42.0-75.0); Hemoglobin 12.9 g/dL (14.0-18.0); Mean Platelet Volume 8.5 fL (7.4-10.4); Platelet Count 185 thou/uL (130-400); RBC Distribution Width 11.8 % (11.5-14.5); Red Blood Cell (RBC) Count 4.18 mill/uL (4.70-6.10); White Blood Cell (WBC) Count 6.1 thou/uL (4.8-10.8)
[2018-09-30] MEDS ORDERED: Promethazine HCl 25 MG/ML VIAL SLOW IVP PRN (10:11)
[2018-09-30] MEDS ORDERED: Ondansetron HCl/PF 4 MG/2 ML Vial IVP PRN (10:11)
[2018-09-30] MEDS ORDERED: Promethazine HCl 25 MG/ML VIAL IM PRN (10:11)
[2018-09-30] MEDS: Apixaban 5 MG TAB PO SCH (10:36)
--- NOTE | 2018-09-30 10:47 | OP ---
DATE OF PROCEDURE: 09/30/2018 GI ENDOSCOPY NOTE PROFESSIONAL DEVELOPMENT DIRECTOR SURGEON: None. PROCEDURE PERFORMED: Esophagogastroduodenoscopy with esophageal dilation over guidewire. INDICATION: 1. Possible hematemesis. 2. Chronic dysphagia with history of esophageal stricture. MEDICATIONS: See Anesthesia record. FINDINGS: After discussion of the risks, benefits, and alternatives of the procedure, informed consent was obtained and witnessed. Pre-endoscopic cardiopulmonary examination was satisfactory. Time-out was performed before sedation was achieved. Sedation was achieved with Anesthesia assistance in the endoscopy unit. A Pentax adult upper endoscope was placed into the oropharynx and passed through the cricopharyngeus under direct visualization. The esophageal mucosa appeared normal throughout the proximal mid and lower esophagus, but at the GE junction, there is some erosive esophagitis. No evidence of bleeding. There is some fibrosis associated with this area and mild stricture, which is easily traversed with the endoscope. The endoscope was advanced into the stomach. Forward and retroflexed views of the entire gastric mucosa were obtained. The gastric mucosa appears normal. The endoscope was advanced through the pylorus and into the first and second portions of the duodenum, which also appeared normal. At this point, a spring-tipped guidewire was passed down the accessory port and the endoscope was removed leaving the guidewire in place. I performed a single dilation of the esophagus to 16 mm with [id number] resistance. Following dilation, the endoscope was passed back down into the esophagus for re-examination and showed moderate mucosal disruption of his GE junction stricture. At this point, the endoscope was completely withdrawn and the patient allowed to recover. The patient tolerated the procedure well. There were no immediate postprocedure complications. IMPRESSION: 1. Erosive esophagitis of the gastroesophageal junction, secondary to reflux. 2. Mild stricture at the gastroesophageal junction, now status post Savary dilation to 16 mm with good mucosal disruption. 3. Otherwise normal esophagogastroduodenoscopy. RECOMMENDATIONS: 1. Protonix 40 mg daily. 2. Can resume anticoagulation. 3. Advance diet. 4. GI will sign off. Please call back anytime with questions or concerns. Job ID: [id number]
[2018-09-30 11:07] VITALS: BP 125/81; TEMP 97.6
[2018-09-30] MEDS ORDERED: Lidocaine 1% PF 5 ML VIAL ONE (11:16)
[2018-09-30] MEDS ORDERED: PROPOFOL 200 MG/20 ML VIAL ONE (11:16)
[2018-09-30] MEDS: Ferrous Sulfate 325 MG TAB PO SCH (12:24)
[2018-09-30] MEDS: Loratadine 10 MG TAB PO SCH (12:24)
[2018-09-30] MEDS: Magnesium Oxide 250 MG TAB PO SCH (12:24)
[2018-09-30] MEDS: Escitalopram Oxalate 10 mg Tablet PO SCH (12:24)
[2018-09-30] MEDS: Multivit, Therapeutic 1 TAB PO SCH (12:25)
--- NOTE | 2018-09-30 17:00 | DIS ---
DATE OF ADMISSION: 09/28/2018 DATE OF DISCHARGE: 09/30/2018 PRIMARY CARE PHYSICIAN: Lisy Mac. CONSULTANTS: 1. Dr. Maddox, neurology. 2. Dr. Rice, GI. PROCEDURES: 1. The patient had a chest x-ray, which showed no significant acute intrathoracic disease. No pneumonia, edema, or other acute process. Atherosclerosis of the aorta with ectasia, stable from prior study. 2. The patient had a brain CT, no acute intracranial bleed or mass effect. No definite acute infarct on CT. See above. The patient had a brain MRI, which showed minimal chronic ischemic white matter changes, otherwise negative. 3. Dr. Rice also performed a GI endoscopy with esophageal dilatation over a guidewire. Impression: 1. Erosive esophagitis at the gastroesophageal junction secondary to reflux. 2. Mild stricture of the gastroesophageal junction, now status post Savary dilatation. Otherwise normal EGD. HOSPITAL COURSE: Abdelrahman is a very pleasant 63-year-old male who reported to the emergency room after he had returned home from work, apparently had trouble finding some knobs in the radio on his truck and was confused. This was noticed by his coworkers and EMS was called, and he was taken to the emergency room for further evaluation. He improved while in the emergency room. His was present with him. The patient did not remember parts of the day prior to being admitted to the emergency room. He did have a diagnosis of frontal lobe dementia within the last year. He and his both reported it is mild. The patient had procedures as listed above. There is also some report of emesis which contained blood and GI was consulted on exam and history. The patient was complaining that he had a history of his esophageal stricture which had been dilated in the past and Dr. Rice took him to the emergency room on the day of discharge for an EGD and dilated the stricture today as well. Diagnosis with GERD and stricture post dilatation. The patient has remained stable while he has been in the hospital, has had no more episodes, and the patient was discharged home. DISCHARGE DIAGNOSES: 1. Acute confusional state, probable transient global amnesia per neurology. 2. History of CVA. 3. History of frontal lobe dementia. 4. Normocytic anemia. 5. History of nephrolithiasis. 6. History of diverticulitis. 7. Hypertension. 8. Gastroesophageal reflux disease. 9. Esophageal stricture post dilatation. REVIEW OF SYSTEMS: The patient was examined prior to discharge. He denied any complaints other than some mild upper GI discomfort after procedure this morning. All other systems reviewed and are negative unless mentioned in the hospital course. PHYSICAL EXAMINATION: VITAL SIGNS: Temperature 98.5, pulse 62, respirations 20, blood pressure 118/57. CONSTITUTIONAL: The patient is in no distress. He is alert and oriented to person, place, and time. HEAD: Atraumatic and normocephalic. EYES: Pupils are equally round and reactive to light. Extraocular muscles are intact. ENT: Mouth exam is normal. Mucous membranes are moist. NECK: Trachea is midline. No tenderness. RESPIRATORY/CHEST: Breath sounds are clear. No findings of respiratory distress. CARDIOVASCULAR: Regular heart rate and rhythm. No murmurs. ABDOMEN: Nontender. Bowel sounds are heard. BACK: Normal inspection. No tenderness. EXTREMITIES: Upper extremities, normal strength. Pulses are equal bilaterally. Lower extremities, normal strength. Pedal pulses are equal bilaterally. No edema is noted. NEURO: He is alert and oriented to person, place, and time. Speech is normal. SKIN: Warm, dry, normal in color. MEDICATIONS: The patient will be discharged home on his home medications which include: 1. Eliquis 5 mg p.o. b.i.d. 2. Zyrtec 10 mg p.o. daily. 3. Lexapro 10 mg p.o. daily. 4. Ferrous sulfate 65 mg p.o. daily. 5. Magnesium 250 mg p.o. daily. 6. Multivitamin one tablet p.o. daily. 7. one tablet p.o. daily. 8. We added Protonix 40 mg p.o. daily. ALLERGIES: PENICILLIN. CONDITION: The patient's condition is stable. DISCHARGE DISPOSITION: The patient will be discharged to home. REFERRALS: The patient should follow up with Lisy Mac within one week. Follow up with Dr. Maddox at his first available appointment. Follow up with Dr. Rice as needed. We highly recommend colonoscopy if the patient has not had one in the last 10 years. Job ID: [id number]
== END 2018-09-30 13:47 | disposition home or self-care (01) ==
LOC: ERS 05:27 → INTOOBSV 07:37 → ERHOLD 07:37 → 2SE 17:16
PROVIDERS: ADMIT Internal Medicine; ATTEND Internal Medicine
PROC: 0D748ZZ Dilation of Esophagogastric Junction, Via Natural or Artificial Opening Endoscopic (ICD-10-PCS; principal; 2018-09-30)
DX: K22.2 Esophageal obstruction (principal); K22.10 Ulcer of esophagus without bleeding; K21.9 Gastro-esophageal reflux disease without esophagitis; R41.0 Disorientation, unspecified; G31.09 Other frontotemporal neurocognitive disorder; F02.80 Dementia in other diseases classified elsewhere, unspecified severity, without behavioral disturbance, psychotic disturbance, mood disturbance, and anxiety; I10 Essential (primary) hypertension; D64.9 Anemia, unspecified; G47.30 Sleep apnea, unspecified; Z86.73 Personal history of transient ischemic attack (TIA), and cerebral infarction without residual deficits; Z87.442 Personal history of urinary calculi; Z85.828 Personal history of other malignant neoplasm of skin; Z87.891 Personal history of nicotine dependence; Z90.49 Acquired absence of other specified parts of digestive tract; Z88.0 Allergy status to penicillin; Z79.01 Long term (current) use of anticoagulants; Z79.899 Other long term (current) drug therapy; Z98.890 Other specified postprocedural states
CPT/HCPCS: 36415; 70450; 70553; 71045; 80048; 80053; 80306; 80307; 81003; 82140; 82274; 82550; 82607; 82728; 83540; 83550; 83690; 83880; 84146; 84443; 84484; 85025; 85610; 85730; 90471; 90686; 93005; G0008; G0378; J2001; J2704; Q0163